=== PATIENT | male | born 1940 | race Two or more races ===

== ENCOUNTER 2023-01-05 12:14 | Inpatient (IN) | payer OTHER ==
[~2023-01-05] VITALS: Ht 160 cm; Wt 81.2 kg
[2023-01-05] MEDS ORDERED: HYDRALAZINE HCL50 MG PO (12:43)
[2023-01-05] MEDS ORDERED: SIMVASTATIN5 MG (12:43)
[2023-01-05] MEDS ORDERED: BUMETANIDE1 MG PO (12:43)
[2023-01-05] MEDS ORDERED: ZYLOPRIM100 M1 (12:44)
[2023-01-05] MEDS ORDERED: ISOSORBIDE DINI30 MG PO (12:44)
[2023-01-05] MEDS ORDERED: TOPROL XL25 M1 PO (12:44)
[2023-01-05] MEDS ORDERED: RESTORIL30 M1 PO (12:44)
[2023-01-05] MEDS ORDERED: TAMS0.4C PO (12:44)
[2023-01-05] MEDS ORDERED: AVAPRO300 MG PO (12:45)
[2023-01-05] MEDS ORDERED: ALLERGY RELIE15.8 ML (12:45)
[2023-01-05] MEDS ORDERED: ELIQUIS2.5 MG PO (12:45)
[2023-01-05] MEDS ORDERED: MONTELUKAST SODI4 M1 (12:46)
[2023-01-05] MEDS ORDERED: GRALISE600 MG (12:46)
--- NOTE | 2023-01-05 12:55 | NUR ---
PACIENTE ALERTA Y ORIENTADO POR 3 ESFERAS REFIERE NO EVACUAR HACE 3 RAE Y SHIRLEY DOLOR ANAL. SE MIDEN S/V, SE UBICA PACIENTE EN AREA DE OBSERVACION.
--- NOTE | 2023-01-05 16:23 | NUR ---
PACIENTE EVALUADO POR DR SULEIMAN MCKEONIEN [place] [facility], SE LE ORIENTA PACIENTE SOBRE EL MISMO Y VERBALIZA ENTENDER. SE LE COLECTAN MEUSTRAS Y SE CANALIZA BAJO MEDIDAS ASEPITCAS. SE LE HACE ENTREGA A PACIENTE ENVASE PARA COLECTA DE U/A, SE LE COLOCA SOAP ENEMA. SE LE HACE ENTREGA DE CONTRASTE PARA CT PO.
--- NOTE | 2023-01-05 18:14 | NUR ---
SE COLECTA MUESTRA PENDIENTE BAJO MEDIDAS ASEPTICAS. SE COLOCA GONZALES CATETER BAJO MEDIDAS ASEPTICAS Y ESTERILES SE COLECTA MUESTRA PENDIENTE.
--- NOTE | 2023-01-05 23:15 | NUR ---
SE PIDE KCL 40 MEQ EN 0.9NSS A SUPERVISION GENERAL
--- NOTE | 2023-01-05 23:39 | NUR ---
SE RECIBE PACIENTE ALERTA Y ORIENTADO X3 EN COMPANIA DE VIRGEN FAMILIAR. EL MISMO EN DESCANSO EN CAMA CON LAS BARANDAS ELEVADAS. CON VIRGEN CANALIZACION PATENTE Y BARRY DE DOLOR BAJANDO CON UN 0.9NSS @ 80 ML/HR. GONZALES DRENANDO A GRAVEDAD ORINA AMARILLA KAUR SIN HEMATURIA. EL MISMO CONSULTADO CON EL DR. DEBBIE MONTANEZ Y DR. NEHA SHARMA POR CKD Y CHOLECYSITTIS.
[2023-01-07] MEDS ORDERED: LANTUS SOL100 UNIT/1 (16:31)
[2023-01-07] MEDS ORDERED: DORZOLAMIDE HCL10 ML (16:31)
[2023-01-07] MEDS ORDERED: BRIMONIDINE TART5 ML (16:31)
[2023-01-07] MEDS ORDERED: POTASSIUM CHLO20 ME1 (16:31)
[2023-01-07] MEDS ORDERED: BREO ELLIPTA I1 EACH (16:32)
[2023-01-07] MEDS ORDERED: TIMOLOL MALEATE5 M4 (16:32)
== END 2023-01-10 11:37 | disposition left against medical advice (07) | DRG 445 ==
LOC: ER 12:14 → SURH 01-06 01:09
PROVIDERS: General Practice; Nurse Practitioner Family; ADMIT Internal Medicine; ATTEND Internal Medicine
PROC: BW21ZZZ Computerized Tomography (CT Scan) of Abdomen and Pelvis (ICD-10-PCS; principal; 2023-01-05)
PROC: BT4JZZZ Ultrasonography of Kidneys and Bladder (ICD-10-PCS; 2023-01-05)
PROC: 4A12X4Z Monitoring of Cardiac Electrical Activity, External Approach (ICD-10-PCS; 2023-01-06)
PROC: BW40ZZZ Ultrasonography of Abdomen (ICD-10-PCS; 2023-01-07)
DX: K80.10 Calculus of gallbladder with chronic cholecystitis without obstruction (principal); N17.8 Other acute kidney failure; E11.22 Type 2 diabetes mellitus with diabetic chronic kidney disease; N18.9 Chronic kidney disease, unspecified; E87.6 Hypokalemia; K59.09 Other constipation; Z79.4 Long term (current) use of insulin; E66.9 Obesity, unspecified; Z68.31 Body mass index [BMI] 31.0-31.9, adult